=== PATIENT | male | born 1935 | race Caucasian/White ===

== ENCOUNTER 2017-11-21 00:38 | Inpatient (IN) | payer MEDICARE, BC ==
[2017-11-21] VITALS (10 sets, daily range): BP systolic 118–153; BP diastolic 56–82
[~2017-11-21] VITALS: Ht 180.3 cm; Wt 82.1 kg
--- NOTE | 2017-11-21 01:03 | NUR ---
BB FAMILY; LOWER ABD PAIN X 1 DAY. PT AOX3 RR EVEN AND UNLABORED. NO SOB NOTED. NAD NOTED. NO NVD AT THIS TIME. PT GOWNED AND PLACED ON MONITOR. WAITING FOR MD ALAS.
--- NOTE | 2017-11-21 01:12 | NUR ---
DR. WEATHERS AT BEDSIDE FOR EVAL.
[2017-11-21] MEDS ORDERED: ONDANSETRON HCL/PF 4 MG/2 ML VIAL ONE (01:21)
[2017-11-21] MEDS ORDERED: MORPHINE SULFATE INJ 2 MG/ML DISP.SYRIN ONE (01:21)
[2017-11-21] MEDS ORDERED: MORPHINE SULFATE INJ 2 MG/ML DISP.SYRIN IV ONE (01:30)
[2017-11-21] MEDS ORDERED: ONDANSETRON HCL/PF 4 MG/2 ML VIAL IVP ONE (01:30)
[2017-11-21 01:36] LABS: APPEARANCE,URINE SL CLOUDY (CLEAR); BILIRUBIN,URINE NEGATIVE (NEGATIVE); BLOOD, URINE 1+ Ery/uL (NEGATIVE); COLOR,URINE YELLOW (YELLOW); KETONES,URINE 3+ (NEGATIVE); LEUKOCYTE ESTERASE ,URINE 1+ (NEGATIVE); NITRITE, URINE NEGATIVE (NEGATIVE); PH,URINE 7.5 (5.0-8.0); PROTEIN,URINE TRACE mg/dl (NEGATIVE); UGLUCOSE NEGATIVE (NEGATIVE); UROBILINOGEN,URINE 0.2 EU/dL (0.2)
[2017-11-21 01:45] LABS: CALCIUM, SERUM 9.9 mg/dL (8.5-10.1); CARBON DIOXIDE 31 mmol/L (21-32); CHLORIDE 95 mmol/L (98-107); GLUCOSE 170 mg/dL (74-106); POTASSIUM 3.5 mmol/L (3.5-5.1); SODIUM SERUM 136 mmol/L (136-145); UREA NITROGEN, BLOOD 18 mg/dL (7-18)
[2017-11-21 01:48] LABS: BASOPHILS % (AUTO) 0.1 % (0.0-2.0); HEMATOCRIT 46 % (39-51); HEMOGLOBIN 15.9 g/dL (13.5-17.5); LYMPHOCYTES # (AUTO) 0.5 /CMM (0.8-4.8); MEAN CORPUSCULAR HGB CONC 34 g/dl (31.0-36.0); MEAN CORPUSCULAR VOLUME 94 fL (80-96); MONOCYTES # (AUTO) 0.6 /CMM (0.1-1.30); MONOCYTES % (AUTO) 3.6 % (2.0-12.0); NEUTROPHILS # (AUTO) 15.7 /CMM (1.8-8.9); NEUTROPHILS % (AUTO) 93.3 % (43.0-81.0); PLATELET COUNT (AUTO) 278 /CMM (150-450); RDW COEFFICIENT OF VARIATION 13.7 (11.5-15.0); WHITE BLOOD COUNT (AUTO) 16.8 K/uL (4.3-11.0)
--- NOTE | 2017-11-21 01:53 | NUR ---
PT TO CT.
[2017-11-21 01:56] LABS: ALANINE AMINOTRANSFERASE 38 U/L (12-78); ALBUMIN 4.4 g/dL (3.4-5.0); ALKALINE PHOSPHATASE 71 U/L (46-116); ASPARTATE AMINOTRANSFERASE 26 U/L (15-37); BILIRUBIN,DIRECT 0.2 mg/dL (0.0-0.2); BILIRUBIN,TOTAL 0.8 mg/dL (0.2-1.0); LIPASE 100 U/L (73-393); TOTAL PROTEIN, SERUM 7.9 g/dL (6.4-8.2)
[2017-11-21 01:57] LABS: BACTERIA,URINE None seen /HPF (None Seen); MUCUS,URINE Few /LPF (None Seen); SQUAMOUS EPITHELIAL CELL,UR Moderate /HPF (None Seen); URINE AMORPHOUS PHOSPHATES Moderate /HPF (None Seen)
--- NOTE | 2017-11-21 02:02 | NUR ---
PT RETURNED FROM CT.
[2017-11-21] MEDS ORDERED: HYDROMORPHONE INJ 2 MG/ML DISP.SYRIN ONE ×2 (02:34→08:29)
--- NOTE | 2017-11-21 02:39 | NUR ---
VERBAL ORDERS PER DR. WEATHERS IV DILAUDID 1MG IVP ONE TIME FOR PAIN. PT MEDICATED.
[2017-11-21] MEDS ORDERED: PIPERACILLIN /TAZOBACTAM 3.375 G in IV D5W 50 ML IV ONE (03:00)
[2017-11-21] MEDS ORDERED: HYDROMORPHONE 1 MG/1 ML DISP.SYRIN IV ONE (03:00)
--- NOTE | 2017-11-21 03:03 | NUR ---
RADIOLOGY AT BEDSIDE FOR CXR
[2017-11-21] MEDS ORDERED: PIPERACILLIN /TAZOBACTAM 3.375 G VIAL IV ONE (03:06)
--- NOTE | 2017-11-21 03:20 | NUR ---
DR CHUNG PAGED PER DR WEATHERS.
--- NOTE | 2017-11-21 03:29 | NUR ---
NGT PLACED PER MD ORDER, 55CM AT THE LEFT NARE, GASTRIC CONTENT NOTED. VERIFIED BY 2NR RN CAITLYN, PLACED ON INTERMITENT SUCTION.
--- NOTE | 2017-11-21 03:38 | NUR ---
DR CHUNG REPAGED PER DR WEATHERS.
--- NOTE | 2017-11-21 03:43 | NUR ---
700 CC GASTRIC CONTENT NOTED VIA INTERMITTEN SUCTION, DR. WEATHERS MADE AWARE
[2017-11-21] MEDS ORDERED: AMLO5TAB4 PO (03:50)
[2017-11-21] MEDS ORDERED: OLME20TA13 PO (03:50)
[2017-11-21] MEDS ORDERED: BRIN8DRO OP (03:50)
[2017-11-21] MEDS ORDERED: ALFU10TA PO (03:50)
[2017-11-21] MEDS ORDERED: ATOR20TA PO (03:50)
[2017-11-21] MEDS ORDERED: LATA2.5D7 EACHEYE (03:50)
--- NOTE | 2017-11-21 04:06 | NUR ---
DR CHUNG REPAGED PER DR WEATHERS.
--- NOTE | 2017-11-21 04:24 | NUR ---
DR CHUNG REPAGED PER DR WEATHERS.
[2017-11-21] MEDS ORDERED: IV NS 0.9% 1,000 ML IV PRN (04:40)
[2017-11-21] MEDS ORDERED: ZOLPIDEM TARTRATE 5 MG TABLET PO PRN (05:00)
[2017-11-21] MEDS ORDERED: ACETAMINOPHEN 325 MG TABLET PO PRN (05:00)
[2017-11-21] MEDS ORDERED: Z GUARD REMEDY 2 OZ OINT TP PRN (05:00)
[2017-11-21] MEDS ORDERED: ONDANSETRON HCL/PF 4 MG/2 ML VIAL IVP PRN ×2 (05:00→14:30)
[2017-11-21] MEDS ORDERED: HYDROCODONE/APAP 5/325MG 1 EACH TABLET PO PRN ×2 (05:00→14:30)
[2017-11-21] MEDS ORDERED: MAG HYDROX/AL HYDROX/SIMETH 30 ML UDC PO PRN (05:00)
[2017-11-21] MEDS ORDERED: MAGNESIUM HYDROXIDE 30 ML UDC PO PRN ×2 (05:00→14:30)
--- NOTE | 2017-11-21 05:13 | NUR ---
REPORT GIVEN TO ISA BALL FOR DIANA.
--- NOTE | 2017-11-21 06:03 | NUR ---
DR. ADHIKARI SPEAKING TO DR. WEATHERS FOR SURGERY CONSULT.
--- NOTE | 2017-11-21 06:31 | NUR ---
PT TRANSFERRED VIA WC TO DC BED
[2017-11-21] MEDS ORDERED: PIPERACILLIN /TAZOBACTAM 3.375 G in IV NS 0.9% 50 ML IV SCH (07:00)
[2017-11-21] MEDS ORDERED: ANESTHESIA TRAY IN PYXIS 1 EA TRAY MC ONE (07:16)
[2017-11-21] MEDS ORDERED: OLME1TAB52 PO (07:24)
--- NOTE | 2017-11-21 07:36 | NUR ---
RN NOTES PATIENT A/OX4, BREATHING EVEN AND UNLABORED, NO SOB NOTED, PATIENT VERBALIZED PAIN SCALE OF 2-3 OUT OF 10 ON THE ABDOMEN AREA, TOLERABLE AT THIS TIME. NG TUBE IN PLACED ON LEFT NARES, WITH LOW INTERMITTENT SUCTION, PATIENT SIGNED CONSENTS FOR SURGERY WITH DR. HERNANDES. PRE-OP DONE, OR STAFF CAME AND PICKED UP THE PATIENT, TRANSFERRED TO OR VIA BED.
[2017-11-21] MEDS: PIPERACILLIN /TAZOBACTAM 3.375 G in IV NS 0.9% 50 ML IV SCH ×3 (08:00→20:24)
[2017-11-21] MEDS ORDERED: FENTANYL PF 100MCG/2ML AMPUL ONE (08:29)
[2017-11-21] MEDS ORDERED: MIDAZOLAM HCL 2 MG/2ML VIAL ONE (08:30)
[2017-11-21] MEDS ORDERED: ROCURONIUM BROMIDE 50 MG/5 ML ONE (08:30)
[2017-11-21] MEDS ORDERED: BUPIVACAINE 0.25% 75 MG/30 ML VIAL ONE (08:33)
[2017-11-21] MEDS ORDERED: LIDOCAINE 0.5% HCL 50 ML VIAL ONE (08:33)
[2017-11-21] MEDS: PANTOPRAZOLE 40 MG VIAL IV SCH (09:00)
[2017-11-21] MEDS ORDERED: hydrALAZINE HCL IV 20 MG VIAL ONE (12:34)
--- NOTE | 2017-11-21 13:35 | NUR ---
RN NOTES PATIENT CAME BACK FROM OR, A/OX3, VERBALIZED FEELING GROGGY, DENIES PAIN THIS TIME, VITALS STABLE, IN ROOM AIR WITH SPO2 AT 98%, RECEIVED REPORT AND ORDERS. WAITING FOR DR. HERNANDES TO CLARIFY ORDER FOR AN NGT. AT BEDSIDE. NEEDS ATTENDED AND MET, CALL LIGHT WITHIN REACH, WILL CONTINUE TO MONITOR.
[2017-11-21] MEDS: IV LR 1000 ML 1,000 ML IV PRN (14:19)
--- NOTE | 2017-11-21 14:20 | NUR ---
RN NOTES CLARIFIED NGT ORDER WITH DR. HERNANDES, PER , OK TO DISCONTINUE NGT. ORDER NOTED AND CARRIED OUT.
--- NOTE | 2017-11-21 17:35 | NUR ---
had surgery repair of SBO done today. He is alert and oriented. Lives locally and was ambulatory prior to admission. Will discuss dc planning options once more awake post op. Addendum: 11/21/17 at 2216 by ISMA SCHMIDT RN Amended: Links added.
[2017-11-21] MEDS: MORPHINE SULFATE INJ 4 MG/ML DISP.SYRIN IV PRN (18:27)
--- NOTE | 2017-11-21 19:12 | NUR ---
RN NOTES PATIENT A/OX4, NO DISTRESS NOTED, PATIENT VERBALIZED FEELING COMFORTABLE AT THIS TIME. PATIENT TOLERATED DINNER WELL. 4 SURGICAL INCISIONS DRY, NO BLEEDING NOTED, BREATHING EVEN AND UNLABORED, STEIN CATH PATENT AND DRAINING WELL. ON IVF AND INFUSING WELL, VITALS STABLE. NEEDS ATTENDED AND MET, CALL LIGHT WITHIN REACH, WILL ENDORSE TO DELIVERY ROUTE DRIVER FOR DIANA.
--- NOTE | 2017-11-21 19:18 | NUR ---
RN NOTES RECEIVED PT IN BED, AWAKE, A/ OX4, AT BEDSIDE. NO DISTRESS NOTED. 4 SURGICAL INCISIONS DRY, NO BLEEDING NOTED, BREATHING EVEN AND UNLABORED, STEIN CATH PATENT AND DRAINING WELL. IV ON RAC INTACT AND PATENT. DENIES ANY PAIN OR DISCOMFORT AT THIS TIME. IVF INFUSING WELL. ALL NEEDS ATTENDED AND MET, CALL LIGHT WITHIN REACH, WILL CONTINUE TO MONITOR.
[2017-11-21] MEDS: DOCUSATE SODIUM 100 MG CAPSULE PO SCH (20:24)
--- NOTE | 2017-11-21 21:00 | NUR ---
INSERTED IV ON LFA X 1 ATTEMPT WITH GOOD VENOUS RETURN PER PT'S REQUEST, THE IV MACHINE KEEPS ON ALARMING WHENEVER HE BEND HIS HAND AND C/O PAIN ON THE SITE.
[2017-11-22] MEDS: MORPHINE SULFATE INJ 4 MG/ML DISP.SYRIN IV PRN ×5 (00:20→21:44)
[2017-11-22] MEDS: IV LR 1000 ML 1,000 ML IV PRN ×2 (00:28→16:02)
[2017-11-22] MEDS: PIPERACILLIN /TAZOBACTAM 3.375 G in IV NS 0.9% 50 ML IV SCH ×4 (02:35→20:20)
[2017-11-22 06:19] LABS: BASOPHILS % (AUTO) 0.2 % (0.0-2.0); EOSINOPHILS % (AUTO) 0.1 % (0.0-6.0); HEMATOCRIT 35 % (39-51); LYMPHOCYTES # (AUTO) 1.1 /CMM (0.8-4.8); LYMPHOCYTES % (AUTO) 10.4 % (20.0-44.0); MEAN CORPUSCULAR HGB CONC 34 g/dl (31.0-36.0); MEAN CORPUSCULAR VOLUME 96 fL (80-96); MONOCYTES # (AUTO) 0.9 /CMM (0.1-1.30); MONOCYTES % (AUTO) 9.2 % (2.0-12.0); NEUTROPHILS # (AUTO) 8.1 /CMM (1.8-8.9); NEUTROPHILS % (AUTO) 80.1 % (43.0-81.0); PLATELET COUNT (AUTO) 202 /CMM (150-450); RDW COEFFICIENT OF VARIATION 14.8 (11.5-15.0); RED BLOOD CELL COUNT(AUTO) 3.66 MIL/uL (4.5-6.0); WHITE BLOOD COUNT (AUTO) 10.1 K/uL (4.3-11.0)
--- NOTE | 2017-11-22 06:30 | NUR ---
RN NOTES PT IN BED, RSETING COMFORTABLE, AROUSES EASILY, A/ OX4. NO DISTRESS NOTED. 4 SURGICAL INCISIONS DRY, NO BLEEDING NOTED, BREATHING EVEN AND UNLABORED, STEIN CATH PATENT AND DRAINING WELL. IV ON RAC INTACT AND PATENT. DENIES ANY PAIN OR DISCOMFORT AT THIS TIME. IVF INFUSING WELL. ALL DUE MEDS GIVEN . ALL NEEDS ATTENDED AND MET, CALL LIGHT WITHIN REACH, WILL ENDORSE TO NEXT SHIFT FOR DIANA. .
[2017-11-22 06:40] LABS: CALCIUM, SERUM 8.2 mg/dL (8.5-10.1); CARBON DIOXIDE 31 mmol/L (21-32); CHLORIDE 101 mmol/L (98-107); GLUCOSE 122 mg/dL (74-106); MAGNESIUM 2.1 mg/dL (1.8-2.4); POTASSIUM 3.4 mmol/L (3.5-5.1); SODIUM SERUM 138 mmol/L (136-145); UREA NITROGEN, BLOOD 17 mg/dL (7-18)
[2017-11-22 06:45] LABS: CHOLESTEROL 126 mg/dL (<200); HDL CHOLESTEROL 70 mg/dL (40-60); IRON, SERUM 37 ug/dl (50-175); LDL 50 mg/dL (0-99); THYROID STIMULATING HORMONE 0.581 uIU/mL (0.358-3.74); TOTAL IRON BINDING CAPACITY 169 ug/dl (250-450); TRIGLYCERIDES 53 mg/dL (30-150)
--- NOTE | 2017-11-22 06:45 | NUR ---
RN NOTES PT IN BED, RESTING COMFORTABLY IN BED, A/ OX4. NO DISTRESS NOTED. 4 SURGICAL INCISIONS DRY, NO BLEEDING NOTED, BREATHING EVEN AND UNLABORED, STEIN CATH PATENT AND DRAINING WELL. IV ON RAC INTACT AND PATENT. DENIES ANY PAIN OR DISCOMFORT AT THIS TIME. ALL DUE MEDS GIVEN. IVF INFUSING WELL. ALL NEEDS ATTENDED AND MET, CALL LIGHT WITHIN REACH, WILL ENDORSE TO NEXT SHIFT FOR DIANA.
--- NOTE | 2017-11-22 07:15 | NUR ---
RN INITIAL NOTES: PATIENT RESTING IN BED. NONLABORED BREATHING NOTED ON ROOM AIR. PATIENT DENYING PAIN AT THE MOMENT. IV SITE ON RIGHT AC 20 PATENT AND INTACT AND LEFT HAND PATENT AND INTACT GAUGE 20 BED IN LOWEST LOCKED POSITION. CALL LIGHT WITHIN REACH. STEIN CATHETER DRAINING YELLOW CLEAR URINE. .
[2017-11-22 08:04] VITALS: BP 114/74
[2017-11-22] MEDS: DOCUSATE SODIUM 100 MG CAPSULE PO SCH ×2 (08:40→20:27)
[2017-11-22] MEDS: PANTOPRAZOLE 40 MG VIAL IV SCH (09:44)
[2017-11-22] MEDS ORDERED: AMLODIPINE BESYLATE 2.5 MG TABLET PO SCH (11:00)
[2017-11-22] MEDS: HYDROCHLOROTHIAZIDE 25 MG TABLET PO SCH (12:00)
[2017-11-22] MEDS ORDERED: ATORVASTATIN 10 MG TABLET PO SCH (12:00)
[2017-11-22] MEDS: LOSARTAN POTASSIUM 50 MG TABLET PO SCH (12:00)
[2017-11-22] MEDS ORDERED: POTASSIUM CHLORIDE 20 MEQ TAB.PRT.SR PO SCH (13:00)
[2017-11-22 16:00] VITALS: BP 125/58
--- NOTE | 2017-11-22 16:00 | NUR ---
PATIENT REFUSING TO AMBULATE OUT OF BED. PAIN MEDICATIONS OFFERED. BENEFITS AND RISKS EXPLAINED MULTIPLE TIMES. PATIENT STATING " I AM NOT READY." OFFERED MULTIPLE TIMES, DISCUSSED WITH WELL
--- NOTE | 2017-11-22 16:30 | NUR ---
DR HERNANDES UPDATED ON PATIENT'S CONDITION
--- NOTE | 2017-11-22 16:39 | NUR ---
PER DR GRETA ADHIKARI, ADVANCE DIET TO REGULAR, PT THERAPY, ABDOMINAL BINDER AND SCROTAL SUPPORT ALSO PER HIS ORDERS, REMOVE STEIN AFTER PATIENT IS ABLE TO AMBULATE WITH PT THERAPY
--- NOTE | 2017-11-22 16:40 | NUR ---
PER DR HERNANDES , NO ANTICOAGULANTS AT THIS MOMENT, ONLY DVT PUMPS
[2017-11-22] MEDS: SIMBRINZA EYE EACHEYE SCH (17:52)
--- NOTE | 2017-11-22 18:00 | NUR ---
SIMBRINZA ADMINISTERED AT 1752 PER SCHEDULE OF ADMINSTRATION. LALA FROM PHARMACY NOTIFIED
--- NOTE | 2017-11-22 18:30 | NUR ---
RN CLOSING NOTES: PATIENT RESTING IN BED. NONLABORED BREATHING NOTED ON ROOM AIR. PATIENT DENYING PAIN AT THE MOMENT. IV SITE ON RIGHT AC 20 PATENT AND INTACT AND LEFT HAND PATENT AND INTACT GAUGE 20 BED IN LOWEST LOCKED POSITION. CALL LIGHT WITHIN REACH. STEIN CATHETER DRAINING YELLOW CLEAR URINE. PATIENT TOLERATED REGULAR DIET. DR MORALES NOTIFIED THAT PATIENT REFUSING PT. PATIENT OK WITH APPLICATION OF ABDOMINAL BINDER. PATIENT EDUCATED ON SCROTAL SUPPORT, REFUSING APPLICATION. BENEFITS AND RISKS EXPLAINED. CHECKED WITH [facility] WELL, [facility] DOES NOT PROVIDE SCROTAL SUPPORT UNDERWEAR BED IN LOWEST LOCKED CALL LIGHT WITHIN REACH. WILL ENDORSE TO NEXT SHIFT
--- NOTE | 2017-11-22 19:35 | NUR ---
rn initial notes: received report from pat chowdhury, pt in bed, awake, a/o x4 on ra respiration even and unlabored, stated he's pain is 3/10 tolerable, and stated morphine helped a lot with his pain. pt s/p lap inguinal hernia repair, with abdominal incision noted, no active bleeding, abdomen soft to touch, abdominal binder applied as md order, also placed towel for scrotal support as scrotal support not available per central supply. pt has wilde in placed draining into yellow colored urine. wilde will be dc when pt ambulates with pt tomorrow per dr negron. discussed with pt and his regarding plan of care, pt agree. safety precautions for fall initiated, call light in reach, will continue monitoring pt.
[2017-11-22 20:00] VITALS: BP 120/56
--- NOTE | 2017-11-22 20:00 | NUR ---
RN NOTES: PER REPORT PT REFUSING PHYSICAL THERAPY AND REPORTED HE'S NOT FEELING READY FOR IT, MD AWARE, WILL TRY ANOTHER PT TOMORROW AM,
--- NOTE | 2017-11-22 20:20 | NUR ---
RN NOTES: PT RECEIVING IVF LR, NOT COMPATIBLE WITH ZOSYN, USED ANOTHER IV, NS PRIMARY THEN ZOSYN IVPB.
[2017-11-22] MEDS: LATANOPROST EYE DROP 0.005% 2.5 ML BOTTLE EACHEYE SCH (20:27)
[2017-11-22 21:30] VITALS: BP 126/54
--- NOTE | 2017-11-22 21:44 | NUR ---
PRN MORPHINE: PT C/O 03/02 ABDOMINAL PAIN STATED ITS EXHAUSTING HIM, REQUESTING FOR PAIN MEDICATION, PRN MORPHINE 3MG IVP ADMINISTERED TO THE PT AT THIS TIME, WILL CONTINUE TO MONITOR AND REASSESS
[2017-11-22] MEDS ORDERED: ALFUZOSIN 10 MG PO SCH (22:00)
[2017-11-23] MEDS: PIPERACILLIN /TAZOBACTAM 3.375 G in IV NS 0.9% 50 ML IV SCH ×4 (01:21→20:43)
[2017-11-23] MEDS: MORPHINE SULFATE INJ 4 MG/ML DISP.SYRIN IV PRN ×7 (01:30→23:47)
--- NOTE | 2017-11-23 01:31 | NUR ---
prn morphine: pt c/o 01/30 abdominal pain requesting for morphine, prn morphine 3mg ivp administered to the pt at this time, will continue to monitor and reassess pain level
[2017-11-23] MEDS: IV LR 1000 ML 1,000 ML IV PRN ×3 (02:22→23:35)
--- NOTE | 2017-11-23 04:30 | NUR ---
RN NOTES: MANAGER CONTACT PROVIDED AM CARE FOR THE PT. PT STATED "NORCO DOESNT DO A THING FOR HIS PAIN, THAT'S WHY I CHOSE INJECTION, MORPHINE" PT VERBALIZED. HE ALSO ADDED THAT HE KNEW HE WILL HAVE THE PAIN PILL WHEN HE GETS HOME, BUT HE SAID MORPHINE HELPED A LOT WITH HIS PAIN RIGHT NOW. EDUCATION PROVIDED TO THE PT. HE ALSO ADDED THAT ABDOMINAL BINDER HELPED A SPLINT FOR HIM, AND HE FELT LESS STRESS ON ABDOMINAL MUSCLES.
--- NOTE | 2017-11-23 05:37 | NUR ---
prn morphine: pt c/o 03/02 pain on abdomen, requesting for morphine, prn morphine 3mg ivp administered at this time will continue to monitor and reassess
--- NOTE | 2017-11-23 07:00 | NUR ---
RN CLOSING NOTES: PT IN BED, AWAKE, A/O X3, ON RA, LAST PAIN MEDICATION ADMINISTERED AT 0530AM. IV ACCESS REMAINS PATENT AND FLUSHING WELL, INFUSING WITH LR AT 90ML/HR. PT USED INCENTIVE SPIROMETRY WHILE AWAKE. NO ACTIVE BLEEDING NOTED ON THE ABDOMINAL INCISION, ABDOMINAL BINDER IN PLACED. TOWEL FOR SCROTAL SUPPORT IN PLACED. VS REMAINS STABLE, NEEDS ATTENDED. SAFETY PRECAUTIONS FOR FALL INITIATED, CALL LIGHT IN REACH, WILL ENDORSE TO DAY RN FOR DIANA.
[2017-11-23 07:15] LABS: BASOPHILS % (AUTO) 0.2 % (0.0-2.0); EOSINOPHILS % (AUTO) 2.2 % (0.0-6.0); HEMATOCRIT 31 % (39-51); HEMOGLOBIN 10.5 g/dL (13.5-17.5); LYMPHOCYTES # (AUTO) 1.1 /CMM (0.8-4.8); LYMPHOCYTES % (AUTO) 13.8 % (20.0-44.0); MEAN CORPUSCULAR HGB CONC 34 g/dl (31.0-36.0); MEAN CORPUSCULAR VOLUME 95 fL (80-96); MONOCYTES # (AUTO) 0.9 /CMM (0.1-1.30); MONOCYTES % (AUTO) 11.8 % (2.0-12.0); NEUTROPHILS # (AUTO) 5.5 /CMM (1.8-8.9); PLATELET COUNT (AUTO) 170 /CMM (150-450); RDW COEFFICIENT OF VARIATION 14.6 (11.5-15.0); RED BLOOD CELL COUNT(AUTO) 3.22 MIL/uL (4.5-6.0); WHITE BLOOD COUNT (AUTO) 7.7 K/uL (4.3-11.0)
--- NOTE | 2017-11-23 07:25 | NUR ---
RN OPEN NOTES RECEIVED BEDSIDE REPORT FROM NIGHT RN. PATIENT IS IN BED, AWAKE, ALERT AND ORIENTED TO NAME, PLACE AND TIME. NO SIGNS AND SYMPTOMS OF DISTRESS. BED IN LOW POSITION, LOCKED AND TWO SIDE RAILS ARE UP FOR SAFETY. CALL LIGHT WITHIN REACH FOR SAFETY. STEIN IS IN PLACE WILL CONTINUE TO MONITOR AND ASSESS PATIENT.
[2017-11-23 07:42] LABS: ALANINE AMINOTRANSFERASE 23 U/L (12-78); ALBUMIN 2.6 g/dL (3.4-5.0); ALKALINE PHOSPHATASE 43 U/L (46-116); ASPARTATE AMINOTRANSFERASE 14 U/L (15-37); BILIRUBIN,TOTAL 0.5 mg/dL (0.2-1.0); CALCIUM, SERUM 8.2 mg/dL (8.5-10.1); CARBON DIOXIDE 30 mmol/L (21-32); CHLORIDE 104 mmol/L (98-107); CREATININE 0.9 mg/dL (0.6-1.3); GLUCOSE 118 mg/dL (74-106); LIPASE 76 U/L (73-393); POTASSIUM 3.7 mmol/L (3.5-5.1); SODIUM SERUM 140 mmol/L (136-145); TOTAL PROTEIN, SERUM 5.3 g/dL (6.4-8.2); UREA NITROGEN, BLOOD 11 mg/dL (7-18)
[2017-11-23 08:00] VITALS: BP 137/63
[2017-11-23] MEDS: PANTOPRAZOLE 40 MG VIAL IV SCH (08:59)
[2017-11-23] MEDS: DOCUSATE SODIUM 100 MG CAPSULE PO SCH ×2 (09:01→21:02)
[2017-11-23] MEDS: LOSARTAN POTASSIUM 50 MG TABLET PO SCH (09:04)
[2017-11-23] MEDS: HYDROCHLOROTHIAZIDE 25 MG TABLET PO SCH (09:04)
--- NOTE | 2017-11-23 13:00 | NUR ---
PATIENT AMBULATED 100 FEET. TOLERATED WELL. 1ST TIME / 3 TIMES
[2017-11-23] MEDS ORDERED: K PHOS NEUTRAL 250 MG TABLET PO ONE (14:00)
--- NOTE | 2017-11-23 14:00 | NUR ---
STEIN REMOVED. 10CC DEFLATED THE BALLOON. PATIENT TOLERATED PROCEDURE WELL. PENDING SELF URINATION
[2017-11-23 16:00] VITALS: BP 131/67
--- NOTE | 2017-11-23 16:30 | NUR ---
PATIENT AMBULATED 100 FEET. TOLERATED WELL. 2ND TIME / 3 TIMES
[2017-11-23] MEDS: SIMBRINZA EYE EACHEYE SCH (16:40)
[2017-11-23] MEDS: ALFUZOSIN PO SCH (17:32)
--- NOTE | 2017-11-23 18:50 | NUR ---
RN CLOSING NOTES PATIENT IS IN BED, ALERT AND ORIENTED TO NAME, PLACE AND TIME. SATURATING 100% ON ON RA, NO SIGNS AND SYMPTOMS OF DISTRESS. PAIN CONTROLLED WITH MORPHINE. IV ACCESS INTACT AND PATENT. SAFETY PRECAUTIONS FOR FALL INITIATED, BED IN LOW POSITION, LOCKED AND TWO SIDE RAILS ARE UP FOR SAFETY. CALL LIGHT IN REACH. PATIENT WALKED TWICE TODAY - PATIENT NEEDS TO WALK ONE MORE TIME. ALL NURSING CARE PROVIDED. PATIENT KEPT CLEAN AND DRY. WILL ENDORSE TO NIGHT RN FOR DIANA.
--- NOTE | 2017-11-23 19:45 | NUR ---
RN INITIAL NOTES: PT IN BED, AWAKE, A/O X4, PT STEIN GOT DC AND PT ABLE TO VOID ON HIS OWN,PREFERS TO USE THE RESTROOM HE'S NOT COMFORTABLE USING THE URINAL, ALSO PT AMBULATE USING WALKER, TOLERATED WELL. PT STILL USING ABDOMINAL BINDER AND STATED HE FELT THAT HE'S DOING A LOT BETTER ESPECIALLY WHEN WALKING. IV ACCESS PATENT AND FLUSHING WELL, INFUSING WITH LR AT 90ML/HR. SAFETY PRECAUTIONS FOR FALL INITIATED CALL LIGHT IN REACH, WILL CONTINUE MONITORING PT.
[2017-11-23 20:00] VITALS: BP 140/72
--- NOTE | 2017-11-23 20:43 | NUR ---
prn morphine: pt c/o 04/01 pain in the abdomen, requesting for morphine, prn morphine 3mg ivp administered at this time, will continue to monitor and reassess
--- NOTE | 2017-11-23 21:00 | NUR ---
RN NOTES: PT AMBULATE 100FT, TOLERATED ACTIVITY WELL.
[2017-11-23] MEDS: LATANOPROST EYE DROP 0.005% 2.5 ML BOTTLE EACHEYE SCH (21:01)
[2017-11-23 21:02] VITALS: BP 140/75
[2017-11-23] MEDS: ATORVASTATIN 10 MG TABLET PO SCH ×2 (21:02→22:00)
[2017-11-23] MEDS: AMLODIPINE BESYLATE 2.5 MG TABLET PO SCH ×2 (21:02→22:00)
[2017-11-23] MEDS: TAMSULOSIN 0.4 MG CAP.SR.24H PO SCH (22:00)
--- NOTE | 2017-11-23 23:01 | NUR ---
rn notes: lipitor and norvasc adminsitered at 2101 however it still showing pink in emar.
[2017-11-23 23:35] VITALS: BP 126/66
--- NOTE | 2017-11-23 23:47 | NUR ---
prn morphine: pt c/o 04/01 pain in his abdomen after he ambulates from the restroom, requesting for morphine, prn morphine 3mg ivp administered at this time, will continue to monitor and reassess
--- NOTE | 2017-11-24 00:30 | NUR ---
RN NOTES: PT AMBULATES AGAIN, 100FT STATED EVERY TIME HE WILL DO IT, ITS GETTING EASIER AND BETTER.
[2017-11-24] MEDS: PIPERACILLIN /TAZOBACTAM 3.375 G in IV NS 0.9% 50 ML IV SCH ×4 (02:11→21:24)
[2017-11-24] MEDS: MORPHINE SULFATE INJ 4 MG/ML DISP.SYRIN IV PRN ×3 (03:46→13:28)
--- NOTE | 2017-11-24 03:47 | NUR ---
MORPHINE 3MG GIVEN ORDERED PER PT'S REQUEST FOR C/O SEVERE LOWER ABD PAIN, PT WAS ASSISTED AMBULATING TO THE BATHROOM AND BACK IN BED. WILL CONT TO MONITOR ,
[2017-11-24 06:25] VITALS: BP 124/79
--- NOTE | 2017-11-24 06:39 | NUR ---
prn morphine: pt c/o severe abdominal pain 01/30 requesting for morphine, prn morphine 3mg ivp administered at this time, will continue to monitor and reassess
--- NOTE | 2017-11-24 07:10 | NUR ---
RN OPEN NOTES RECEIVED BEDSIDE REPORT FROM NIGHT RN. PATIENT IS IN BED, AWAKE, ALERT AND ORIENTED TO NAME, PLACE AND TIME. NO SIGNS AND SYMPTOMS OF DISTRESS. BED IN LOW POSITION, LOCKED AND TWO SIDE RAILS ARE UP FOR SAFETY. CALL LIGHT WITHIN REACH FOR SAFETY. WILL CONTINUE TO MONITOR AND ASSESS PATIENT.
--- NOTE | 2017-11-24 07:13 | NUR ---
RN CLOSING NOTES: PT IN BED, A/O X3, PT VOIDED ON HIS OWN, SOMETIMES USES URINAL, MOST OF THE TIME GOING TO THE BATHROOM. IV ACCESS REMAINS PATENT AND FLUSHING WELL, INFUSING WITH LR AT 90ML/HR. NO ACTIVE BLEEDING NOTED ON THE ABDOMINAL INCISION, ABDOMINAL BINDER IN PLACED. TOWEL FOR SCROTAL SUPPORT IN PLACED. PT ABLE TO TOLERATE WALKING, AND VERY EAGER TO DO A LOT OF WALKING TODAY. VS REMAINS STABLE, NEEDS ATTENDED. SAFETY PRECAUTIONS FOR FALL INITIATED, CALL LIGHT IN REACH, WILL ENDORSE TO DAY RN FOR DIANA.
[2017-11-24] MEDS: SIMBRINZA EYE EACHEYE SCH ×2 (07:46→16:28)
[2017-11-24 08:00] VITALS: BP 144/74
[2017-11-24] MEDS: HYDROCHLOROTHIAZIDE 25 MG TABLET PO SCH (08:33)
[2017-11-24] MEDS: DOCUSATE SODIUM 100 MG CAPSULE PO SCH ×2 (08:33→21:31)
[2017-11-24] MEDS: PANTOPRAZOLE 40 MG VIAL IV SCH (08:33)
[2017-11-24] MEDS: LOSARTAN POTASSIUM 50 MG TABLET PO SCH (08:34)
[2017-11-24 16:00] VITALS: BP 154/72
[2017-11-24] MEDS: ALFUZOSIN PO SCH (17:20)
--- NOTE | 2017-11-24 19:01 | NUR ---
RN CLOSING NOTES PATIENT IS IN BED, ALERT AND ORIENTED TO NAME, PLACE AND TIME. SATURATING 100% ON ON RA, NO SIGNS AND SYMPTOMS OF DISTRESS. PAIN CONTROLLED WITH MORPHINE. IV ACCESS INTACT AND PATENT. SAFETY PRECAUTIONS FOR FALL INITIATED, BED IN LOW POSITION, LOCKED AND TWO SIDE RAILS ARE UP FOR SAFETY. CALL LIGHT IN REACH. PATIENT IS ABLE TO AMBULATE WITHOUT A WALKER. ALL NURSING CARE PROVIDED. PATIENT KEPT CLEAN AND DRY. WILL ENDORSE TO NIGHT RN FOR DIANA.
--- NOTE | 2017-11-24 19:55 | NUR ---
RN OPENING NOTES RECEIVED REPORT FROM DAYSHIFT RN TEE. FOUND Pt AWAKE, RESTING IN BED. NO S/S OF ACUTE DISTRESS OR SOB NOTED. Pt IS A/OX4, VERBAL, ABLE TO MAKE NEEDS KNOWN. IV ACCESS ON L HAND #20G, SL. SAFETY MEASURES IN PLACE. BED LOW, LOCKED, HOB ELEVATED, SIDE RAILS UP, CALL LIGHT AND BEDSIDE TABLE WITHIN REACH. WILL CONTINUE TO MONITOR Pt THROUGHOUT THE NIGHT FOR SAFETY.
[2017-11-24 20:00] VITALS: BP 142/75
[2017-11-24] MEDS: LATANOPROST EYE DROP 0.005% 2.5 ML BOTTLE EACHEYE SCH (21:31)
[2017-11-24] MEDS: TAMSULOSIN 0.4 MG CAP.SR.24H PO SCH (21:33)
[2017-11-24] MEDS: AMLODIPINE BESYLATE 2.5 MG TABLET PO SCH (21:34)
[2017-11-24] MEDS: ATORVASTATIN 10 MG TABLET PO SCH (21:35)
[2017-11-25] MEDS: PIPERACILLIN /TAZOBACTAM 3.375 G in IV NS 0.9% 50 ML IV SCH ×2 (04:04→08:51)
--- NOTE | 2017-11-25 06:50 | NUR ---
RN CLOSING NOTES NO SIGNIFICANT CHANGES IN Pt's CONDITION. Pt REMAINS STABLE AT THIS TIME. NO S/S OF ACUTE DISTRESS OR SOB NOTED DURING THE NIGHT. ALL NEEDS MET AND ATTENDED TO. SAFETY MEASURES IN PLACE. Pt BEING DC'd TODAY. WILL ENDORSE TO DAYSHIFT RN FOR Pt's DIANA.
--- NOTE | 2017-11-25 07:19 | NUR ---
MS RN OPENING NOTES RECEIVED PT AWAKE IN BED IN NO ACUTE SIGNS OF DISTRESS. A/O X4, SAME VERBALLY RESPONSIVE WITH NO C/O PAIN OR DISCOMFORTS VOICED AT THIS TIME. ON ROOM AIR, BREATHING EVEN WITH NO SIGNS OF SOB NOTED. IV ACCESS ON LEFT HAND INTACT AND PATENT. HOB ELEVATED. BED IN LOW/LOCKED POSITION,WITH B/L UPPER SIDE RAILS UP FOR SAFETY. CALL LIGHT WITHIN REACH. WILL CONTINUE TO MONITOR.
[2017-11-25 08:38] VITALS: BP 151/69
[2017-11-25] MEDS: PANTOPRAZOLE 40 MG VIAL IV SCH (08:47)
[2017-11-25] MEDS: DOCUSATE SODIUM 100 MG CAPSULE PO SCH (08:47)
[2017-11-25 08:49] VITALS: BP 151/69
[2017-11-25] MEDS: LOSARTAN POTASSIUM 50 MG TABLET PO SCH (08:49)
[2017-11-25] MEDS: HYDROCHLOROTHIAZIDE 25 MG TABLET PO SCH (08:49)
[2017-11-25] MEDS: SIMBRINZA EYE EACHEYE SCH (08:50)
--- NOTE | 2017-11-25 11:33 | NUR ---
RN DISCHARGED NOTES PATIENT DISCHARGED HOME IN STABLE CONDITION. A/O X 4. ABLE TO MAKE NEEDS KNOWN, NO C/O PAIN OR DISCOMFORTS VOICED DURING DISCHARGE. V/S TAKEN AND RECORDED. PHOTO OF ABDOMINAL INCISIONS TAKEN AND FILED IN CHART. BELONGINGS CHECKED, COUNTED AND SIGNED FORM. DR LORENZO CAME, ASSESSED AND GIVE DISCHARGED INSTRUCTIONS TO PATIENT AND PT'S . HEALTH TEACHINGS GIVEN TO PT AND PT'S WITH VERBALIZATION OF UNDERSTANDING. PT LEFT UNIT AT 1125 VIA WHEELCHAIR ACCOMPANIED BY TABLET TECHNICIAN AND . MD AND NURSE SILK SPOOLER AWARE OF DISCHARGE.
== END 2017-11-25 11:25 | disposition home or self-care (01) | DRG 352 ==
LOC: ER 01:09 → MEDSG2 04:56
PROVIDERS: ADMIT Hospitalist; ATTEND Hospitalist
PROC: 0YQ64ZZ Repair Left Inguinal Region, Percutaneous Endoscopic Approach (ICD-10-PCS; principal; 2017-11-21 08:45)
DX: K40.30 Unilateral inguinal hernia, with obstruction, without gangrene, not specified as recurrent (principal); E78.5 Hyperlipidemia, unspecified; I10 Essential (primary) hypertension; Z87.442 Personal history of urinary calculi; H40.9 Unspecified glaucoma
CPT/HCPCS: 36415; 71045-TC; 80048-TC; 80053-TC; 80061-TC; 80076-TC; 81000-TC; 83540-TC; 83690-TC; 83735-TC; 84100-TC; 84443-TC; 85025-TC; 87081-TC; 87086-TC; 97116-TC; A4216; A4606; A6402; C9113; J0360; J1170; J2250; J2270; J2405; J2543; J2704; J2710; J3010; J3490; J7040; J7060; J7120; Z7610